=== PATIENT | female | born 1960 | race Caucasian/White ===

== ENCOUNTER 2017-11-21 19:54 | Inpatient (IN) | payer BC ==
[~2017-11-21] VITALS: Ht 170.2 cm; Wt 124.7 kg
[2017-11-21 20:31] LABS: HEMATOCRIT 37.8 % (36.0-46.0); HEMOGLOBIN 11.7 G/DL (11.9-15.5); MCH 25.3 PG (29.0-34.0); MCV 81.8 FL (83-99); PLATELET COUNT 201 K/uL (156-360); RBC DIS.WIDTH-CV 15.4 % (11.8-14.6); RBC DIS.WIDTH-SD 45.8 % (39-53); RED BLOOD COUNT 4.62 M/uL (3.80-5.20); WHITE BLOOD COUNT 7.4 K/uL (4.1-10.2)
[2017-11-21 20:43] LABS: CHLORIDE 107 mEq/L (99-109); POTASSIUM 4.3 mEq/L (3.7-5.4); SODIUM 141 mEq/L (136-147)
[2017-11-21 20:45] LABS: GLUCOSE 99 mg/dL (70-99)
[2017-11-21 20:49] LABS: CREATININE 0.7 mg/dL (0.6-1.3); GFR ESTIMATE (CALCULATED) > 59 mL/min/
[2017-11-21 20:50] LABS: UREA NITROGEN (BUN) 19 mg/dL (9-23)
[2017-11-22] VITALS (7 sets, daily range): BP systolic 100–141; BP diastolic 54–74
[2017-11-22] MEDS ORDERED: PRILOSEC OTC20 MG PO (00:33)
[2017-11-22] MEDS ORDERED: VITAMIN D33000 UNIT PO (00:33)
[2017-11-22] MEDS ORDERED: ALEVE220 MG PO (00:34)
[2017-11-22 06:58] LABS: HEMATOCRIT 36.3 % (36.0-46.0); MCH 24.7 PG (29.0-34.0); MCHC 30.3 G/DL (30.0-36.0); MCV 81.4 FL (83-99); RBC DIS.WIDTH-CV 15.2 % (11.8-14.6); RED BLOOD COUNT 4.46 M/uL (3.80-5.20); WHITE BLOOD COUNT 7.3 K/uL (4.1-10.2)
[2017-11-22 07:07] LABS: ALBUMIN 3.6 G/DL (3.2-4.8); ALKALINE PHOSPHATASE 68 IU/L (3-129); ALT (GPT) 16 IU/L (3-49); AST (GOT) 24 IU/L (2-34); CHLORIDE 108 MEQ/L (99-109); CREATININE 0.6 MG/DL (0.6-1.3); GFR ESTIMATE (CALCULATED) > 59 mL/min/; GLUCOSE 127 mg/dL (70-99); POTASSIUM 3.9 MEQ/L (3.7-5.4); SODIUM 140 MEQ/L (136-147); TOTAL BILIRUBIN 0.3 MG/DL (0.0-1.0); TOTAL PROTEIN 5.8 G/DL (6.4-8.3); UREA NITROGEN (BUN) 14 mg/dL (9-23)
[2017-11-22 07:12] LABS: PLAT.SUFFICIENCY DECREASED
[2017-11-22 07:29] LABS: PLATELET COUNT 117 K/uL (156-360)
[2017-11-22 20:49] LABS: BASOPHIL (%) 0.4 % (0-1); EOSINOPHIL (%) 1.2 % (0-5); EOSINOPHIL COUNT 0.1 K/uL (0-0.3); HEMATOCRIT 37.5 % (36.0-46.0); HEMOGLOBIN 11.3 G/DL (11.9-15.5); IMMATURE GRANULOCYTE (%) 0.2 % (0.0-0.7); LYMPHOCYTE (%) 18.8 % (15-42); LYMPHOCYTE COUNT 1.9 K/uL (1.0-2.8); MCH 24.6 PG (29.0-34.0); MCHC 30.1 G/DL (30.0-36.0); MCV 81.7 FL (83-99); MONOCYTE (%) 10.2 % (3-12); NEUTROPHIL (%) 69.2 % (45-76); RBC DIS.WIDTH-CV 15.5 % (11.8-14.6); RBC DIS.WIDTH-SD 45.6 % (39-53); RED BLOOD COUNT 4.59 M/uL (3.80-5.20); WHITE BLOOD COUNT 10.2 K/uL (4.1-10.2)
[2017-11-22 20:51] LABS: PLATELET COUNT 222 K/uL (156-360)
[2017-11-22 21:13] LABS: TROP-I INTERPRETATION NEGATIVE; TROPONIN-I < 0.01 ng/mL (0.0-0.30)
[2017-11-22 21:14] LABS: ALBUMIN 3.7 G/DL (3.2-4.8); ALKALINE PHOSPHATASE 61 IU/L (3-129); ALT (GPT) 16 IU/L (3-49); AST (GOT) 22 IU/L (2-34); CHLORIDE 107 MEQ/L (99-109); CREATININE 0.7 MG/DL (0.6-1.3); DIRECT BILIRUBIN 0.1 mg/dL (0.0-0.3); GFR ESTIMATE (CALCULATED) > 59 mL/min/; GLUCOSE 146 mg/dL (70-99); INTER. NORMALIZED RATIO 1.1; POTASSIUM 4.2 MEQ/L (3.7-5.4); SODIUM 137 MEQ/L (136-147); UREA NITROGEN (BUN) 13 mg/dL (9-23)
[2017-11-22 21:15] LABS: TOTAL BILIRUBIN 0.4 MG/DL (0.0-1.0)
[2017-11-22 21:16] LABS: PTT 24.4 SEC (25-37)
[2017-11-23 05:00] VITALS: BP 121/62
[2017-11-23 07:20] VITALS: BP 111/57
[2017-11-23 10:16] LABS: TROP-I INTERPRETATION NEGATIVE; TROPONIN-I < 0.01 ng/mL (0.0-0.30)
[2017-11-23 11:24] VITALS: BP 118/58
[2017-11-23 11:51] LABS: APPEARANCE CLEAR ((CLEAR)); BILIRUBIN NEGATIVE; BLOOD NEGATIVE; COLOR YELLOW ((YELLOW)); GLUCOSE (STRIP) NEGATIVE; KETONES NEGATIVE; LEUKOCYTES NEGATIVE; NITRITE NEGATIVE; PROTEIN (STRIP) NEGATIVE; SPECIFIC GRAVITY 1.013 (1.000-1.030); UROBILINOGEN 0.2 MG/DL (0.2-1.0)
[2017-11-23 16:50] VITALS: BP 139/61
[2017-11-23 19:13] VITALS: BP 123/64
[2017-11-23 23:15] VITALS: BP 138/67
[2017-11-24 03:33] VITALS: BP 142/72
[2017-11-24 05:21] LABS: BASOPHIL (%) 0.7 % (0-1); BASOPHIL COUNT 0.1 K/uL (0-0.1); EOSINOPHIL (%) 3.2 % (0-5); EOSINOPHIL COUNT 0.2 K/uL (0-0.3); HEMATOCRIT 35.1 % (36.0-46.0); HEMOGLOBIN 10.4 G/DL (11.9-15.5); IMMATURE GRANULOCYTE (%) 0.4 % (0.0-0.7); LYMPHOCYTE (%) 20.5 % (15-42); LYMPHOCYTE COUNT 1.5 K/uL (1.0-2.8); MCH 24.5 PG (29.0-34.0); MCHC 29.6 G/DL (30.0-36.0); MCV 82.6 FL (83-99); MONOCYTE (%) 12.4 % (3-12); MONOCYTE COUNT 0.9 K/uL (0-0.8); NEUTROPHIL (%) 62.8 % (45-76); NEUTROPHIL COUNT 4.5 K/uL (1.8-6.4); PLATELET COUNT 158 K/uL (156-360); RBC DIS.WIDTH-CV 15.7 % (11.8-14.6); RBC DIS.WIDTH-SD 47.4 % (39-53); RED BLOOD COUNT 4.25 M/uL (3.80-5.20); WHITE BLOOD COUNT 7.1 K/uL (4.1-10.2)
[2017-11-24 05:37] LABS: CHLORIDE 109 MEQ/L (99-109); CREATININE 0.6 MG/DL (0.6-1.3); GFR ESTIMATE (CALCULATED) > 59 mL/min/; GLUCOSE 92 mg/dL (70-99); POTASSIUM 4.4 MEQ/L (3.7-5.4); SODIUM 142 MEQ/L (136-147); UREA NITROGEN (BUN) 12 mg/dL (9-23)
[2017-11-24 08:12] VITALS: BP 141/73
[2017-11-24 12:32] VITALS: BP 135/63
[2017-11-24 14:55] VITALS: BP 146/63
[2017-11-24 20:15] VITALS: BP 165/79
[2017-11-24 23:00] VITALS: BP 143/74
[2017-11-25 03:20] VITALS: BP 123/64
[2017-11-25 08:14] VITALS: BP 140/80
[2017-11-25 11:12] VITALS: BP 150/78
[2017-11-25 15:30] VITALS: BP 137/68
[2017-11-25 20:10] VITALS: BP 129/74
[2017-11-26 09:27] VITALS: BP 115/74
[2017-11-26] MEDS ORDERED: TRAMADOL HCL50 MG PO (11:11)
[2017-11-26 12:08] VITALS: BP 132/66
[2017-11-26 15:44] VITALS: BP 142/69
[2017-11-26 19:47] VITALS: BP 109/66
[2017-11-27 00:15] VITALS: BP 110/63
[2017-11-27 03:56] VITALS: BP 106/60
[2017-11-27 06:13] VITALS: BP 103/63
[2017-11-27 07:16] VITALS: BP 115/62
[2017-11-27] MEDS ORDERED: MOTRIN600 MG PO (11:41)
[2017-11-27] MEDS ORDERED: SENEXON-S TABL1 EACH PO (11:42)
[2017-11-27] MEDS ORDERED: SENEXON8.6 MG PO (11:43)
[2017-11-27] MEDS ORDERED: HEPARIN SO5000 UNIT3 SC (11:44)
[2017-11-27] MEDS ORDERED: PROTONIX40 MG PO (11:44)
[2017-11-27] MEDS ORDERED: COLACE100 MG PO (11:45)
[2017-11-27] MEDS ORDERED: VITAMIN D33000 UNIT PO (11:50)
== END 2017-11-27 09:28 | DRG 511 ==
LOC: EME → EDBD 19:54 → 4EAST 11-22 04:47 → 3EAST 11-22 04:47 → ENRESERV 11-22 04:52 → 3EAST 11-22 05:56 → ENRESERV 11-22 20:38 → 3EAST 11-22 20:38 → 4EAST 11-22 21:14
PROVIDERS: Emergency Medicine; Hospitalist; Physician Assistant; Student in an Organized Health Care Education/Training Program; Surgery
PROC: 0PSJ04Z Reposition Left Radius with Internal Fixation Device, Open Approach (ICD-10-PCS; principal; 2017-11-24)
DX: S52.572A Other intraarticular fracture of lower end of left radius, initial encounter for closed fracture (principal); S32.592A Other specified fracture of left pubis, initial encounter for closed fracture; W10.9XXA Fall (on) (from) unspecified stairs and steps, initial encounter; Y92.098 Other place in other non-institutional residence as the place of occurrence of the external cause; E66.01 Morbid (severe) obesity due to excess calories; Z68.41 Body mass index [BMI] 40.0-44.9, adult; Z95.0 Presence of cardiac pacemaker; K21.9 Gastro-esophageal reflux disease without esophagitis; E78.5 Hyperlipidemia, unspecified; E55.9 Vitamin D deficiency, unspecified; Z98.84 Bariatric surgery status; I95.9 Hypotension, unspecified; R55 Syncope and collapse; M25.562 Pain in left knee; Z79.01 Long term (current) use of anticoagulants; Z82.49 Family history of ischemic heart disease and other diseases of the circulatory system
CPT/HCPCS: 70450; 71045; 72192; 73100; 73110; 73502; 73564; 76000; 80048; 80053; 81003; 82248; 82272; 82948; 84484; 85025; 85027; 85379; 85610; 85730; 86850; 86900; 86901; 87040; 87641; 93005; 93306; 97530 GP; 99281; 99285; C1713; J0330; J0690; J1100; J1170; J1644; J1885; J2405; J3010; J3480; J7040; J7120; S0020

== ENCOUNTER 2017-11-27 09:34 | Inpatient (IN) | payer BC ==
[~2017-11-27] VITALS: Ht 170.2 cm; Wt 126.0 kg
[~2017-11-27 09:34] MED LIST: ALEVE220 MG PO; PRILOSEC OTC20 MG PO; TRAMADOL HCL50 MG PO; VITAMIN D33000 UNIT PO
[2017-11-27 09:44] VITALS: BP 110/63
[2017-11-27] MEDS ORDERED: MOTRIN600 MG PO (11:41)
[2017-11-27] MEDS ORDERED: SENEXON-S TABL1 EACH PO (11:42)
[2017-11-27] MEDS ORDERED: SENEXON8.6 MG PO (11:43)
[2017-11-27] MEDS ORDERED: HEPARIN SO5000 UNIT3 SC (11:44)
[2017-11-27] MEDS ORDERED: PROTONIX40 MG PO (11:44)
[2017-11-27] MEDS ORDERED: COLACE100 MG PO (11:45)
[2017-11-27] MEDS ORDERED: VITAMIN D33000 UNIT PO (11:50)
[2017-11-27 15:33] VITALS: BP 112/59
[2017-11-28] VITALS: BP 116/58
[2017-11-28 04:05] VITALS: BP 114/55
[2017-11-28 06:37] LABS: HEMOGLOBIN 9.7 G/DL (11.9-15.5); MCH 24.7 PG (29.0-34.0); MCHC 30.3 G/DL (30.0-36.0); MCV 81.4 FL (83-99); PLATELET COUNT 198 K/uL (156-360); RBC DIS.WIDTH-CV 15.1 % (11.8-14.6); RBC DIS.WIDTH-SD 45.6 % (39-53); RED BLOOD COUNT 3.93 M/uL (3.80-5.20); WHITE BLOOD COUNT 6.2 K/uL (4.1-10.2)
[2017-11-28 07:05] LABS: ALBUMIN 2.9 G/DL (3.2-4.8); ALKALINE PHOSPHATASE 54 IU/L (3-129); ALT (GPT) 9 IU/L (3-49); CHLORIDE 105 MEQ/L (99-109); CREATININE 0.6 MG/DL (0.6-1.3); GFR ESTIMATE (CALCULATED) > 59 mL/min/; GLUCOSE 103 mg/dL (70-99); POTASSIUM 4.1 MEQ/L (3.7-5.4); SODIUM 139 MEQ/L (136-147); TOTAL BILIRUBIN 0.4 MG/DL (0.0-1.0); TOTAL PROTEIN 5.5 G/DL (6.4-8.3); UREA NITROGEN (BUN) 15 mg/dL (9-23)
[2017-11-28 07:11] LABS: AST (GOT) 11 IU/L (2-34)
[2017-11-28 15:15] VITALS: BP 116/56
[2017-11-29 06:23] VITALS: BP 116/61
[2017-11-29 15:21] VITALS: BP 133/69
[2017-11-30 05:31] VITALS: BP 114/56
[2017-11-30 15:03] VITALS: BP 109/56
[2017-12-01 05:55] VITALS: BP 109/55
[2017-12-01 16:11] VITALS: BP 121/59
[2017-12-02 04:50] VITALS: BP 128/64
[2017-12-02 15:29] VITALS: BP 131/64
[2017-12-03 05:16] VITALS: BP 132/65
[2017-12-03 09:51] LABS: HEMATOCRIT 36.7 % (36.0-46.0); HEMOGLOBIN 10.9 G/DL (11.9-15.5); MCH 24.6 PG (29.0-34.0); MCHC 29.7 G/DL (30.0-36.0); MCV 82.8 FL (83-99); PLATELET COUNT 232 K/uL (156-360); RBC DIS.WIDTH-CV 15.9 % (11.8-14.6); RBC DIS.WIDTH-SD 47.5 % (39-53); RED BLOOD COUNT 4.43 M/uL (3.80-5.20); WHITE BLOOD COUNT 6.6 K/uL (4.1-10.2)
[2017-12-03 10:24] LABS: ALBUMIN 3.4 G/DL (3.2-4.8); CHLORIDE 104 MEQ/L (99-109); CREATININE 0.7 MG/DL (0.6-1.3); GFR ESTIMATE (CALCULATED) > 59 mL/min/; GLUCOSE 96 mg/dL (70-99); SODIUM 141 MEQ/L (136-147); UREA NITROGEN (BUN) 13 mg/dL (9-23)
[2017-12-03 10:25] LABS: ALKALINE PHOSPHATASE 86 IU/L (3-129); ALT (GPT) 22 IU/L (3-49); AST (GOT) 26 IU/L (2-34); TOTAL BILIRUBIN 0.3 MG/DL (0.0-1.0)
[2017-12-03 15:30] VITALS: BP 143/68
[2017-12-04 05:03] VITALS: BP 109/55
[2017-12-04 16:00] VITALS: BP 139/74
[2017-12-05 04:18] VITALS: BP 116/58
[2017-12-06 05:02] VITALS: BP 121/70
[2017-12-06 15:20] VITALS: BP 129/73
[2017-12-07 05:18] VITALS: BP 115/65
[2017-12-07] MEDS ORDERED: TRAMADOL HCL50 MG PO (09:52)
[2017-12-07] MEDS ORDERED: TYLENOL REGULA325 MG PO (09:52)
[2017-12-07] MEDS ORDERED: THERAGRAN1 TABLET PO (09:52)
== END 2017-12-07 11:44 | disposition home health service (06) | DRG 560 ==
LOC: 3WEST 09:34
PROVIDERS: Physical Medicine & Rehabilitation Pain Medicine
PROC: F07M0ZZ Range of Motion and Joint Mobility Treatment of Musculoskeletal System - Whole Body (ICD-10-PCS; principal; 2017-11-27)
DX: S32.512D Fracture of superior rim of left pubis, subsequent encounter for fracture with routine healing (principal); S32.592D Other specified fracture of left pubis, subsequent encounter for fracture with routine healing; S52.509D Unspecified fracture of the lower end of unspecified radius, subsequent encounter for closed fracture with routine healing; Z68.41 Body mass index [BMI] 40.0-44.9, adult; E66.01 Morbid (severe) obesity due to excess calories; Z95.0 Presence of cardiac pacemaker; K21.9 Gastro-esophageal reflux disease without esophagitis; E55.9 Vitamin D deficiency, unspecified; W10.8XXD Fall (on) (from) other stairs and steps, subsequent encounter; D62 Acute posthemorrhagic anemia; F41.9 Anxiety disorder, unspecified
CPT/HCPCS: 80053; 85027; 97110 GO; 97530 GP; A6214; J1644